=== PATIENT | male | born 1980 | race Caucasian/White ===

== ENCOUNTER → 2023-10-14 | Outpatient (CLI) | payer BC ==
[~2023-10-14] MED LIST: PEPCID20 M1 PO
== END ==
LOC: RAD 09:23
DX: K76.0 Fatty (change of) liver, not elsewhere classified (principal); R79.89 Other specified abnormal findings of blood chemistry

== ENCOUNTER → 2024-12-05 | Outpatient (CLI) | payer BC | LOC: RAD 08:19 | DX: K40.90 Unilateral inguinal hernia, without obstruction or gangrene, not specified as recurrent (principal) ==